=== PATIENT | male | born 1955 | race Caucasian/White ===

== ENCOUNTER → 2017-06-15 | Outpatient (CLI) | payer BC ==
[~2017-06-15] MED LIST: PRIN20TA2; TOPR25TA2
--- NOTE | 2017-06-15 19:12 | EKG ---
Date Performed: 06/15/2017 Time Performed: 08:40:22 PTAGE: 61 years EKG: Sinus bradycardia with 1st degree A-V block. Left axis deviation Abnormal ECG PREVIOUS TRACING : 05/22/2011 13.06 Since the previous tracing, no significant change noted DOCTOR: Tara Lackey Interpretating Date/Time 06/15/2017 19:10:46
== END ==
LOC: HCAV 08:26
PROVIDERS: ATTEND Family Medicine
DX: I10 Essential (primary) hypertension (principal); R00.2 Palpitations
CPT/HCPCS: 93005